=== PATIENT | female | born 1965 | race Caucasian/White ===

== ENCOUNTER 2016-10-02 08:25 | Emergency (ER) | payer MEDICARE, MEDICAID | END 2016-10-02 09:05 | disposition home or self-care (01) | LOC: NAV ERS 08:25 | DX: L04.0 Acute lymphadenitis of face, head and neck (principal); E78.5 Hyperlipidemia, unspecified; M06.9 Rheumatoid arthritis, unspecified; Z87.891 Personal history of nicotine dependence; Z79.891 Long term (current) use of opiate analgesic; Z79.899 Other long term (current) drug therapy | CPT/HCPCS: 99283 ==

== ENCOUNTER 2017-04-01 13:21 | Emergency (ER) | payer MEDICARE, MEDICAID ==
--- NOTE | 2017-04-01 14:39 | RAD ---
LEFT WRIST THREE VIEWS: History: 52-year-old female with left wrist pain following her left wrist popping while lifting a bag of feed last night. IMPRESSION: No fracture, dislocation, or other significant acute osseous abnormality. POS: [facility]
== END 2017-04-01 14:10 | disposition home or self-care (01) ==
LOC: NAV ERS 13:21
DX: S63.502A Unspecified sprain of left wrist, initial encounter (principal); E78.5 Hyperlipidemia, unspecified; Z87.891 Personal history of nicotine dependence; Z79.899 Other long term (current) drug therapy; X50.9XXA Other and unspecified overexertion or strenuous movements or postures, initial encounter